=== PATIENT | female | born 1990 | race Caucasian/White ===

== ENCOUNTER 2018-08-21 21:02 | Inpatient (IN) | payer BC ==
[~2018-08-21] VITALS: Ht 165.1 cm; Wt 68.5 kg
[2018-08-21] MEDS ORDERED: D5%-LACTATED RINGERS 1,000 ML IV SCH (21:21)
[2018-08-21] MEDS ORDERED: OXYTOCIN 30U/ 0.9% NaCL 500ML 500 ML IV ONE (21:21)
[2018-08-21] MEDS ORDERED: CALCIUM CARBONATE 500 MG TAB.CHEW PO PRN (21:30)
[2018-08-21] MEDS ORDERED: FENTANYL PF 100 MCG/2ML IVPush PRN (21:30)
[2018-08-21] MEDS ORDERED: SODIUM CITRATE/CITRIC ACID 15 ML UDC PO PRN (21:30)
[2018-08-21] MEDS ORDERED: METOCLOPRAMIDE 5 MG/ML, 2ML IVPush PRN (21:30)
[2018-08-21] MEDS ORDERED: TERBUTALINE 1 MG/ML, 1ML IVPush PRN (21:30)
[2018-08-21] MEDS ORDERED: ONDANSETRON 2MG/ML, 2ML IVPush PRN (21:30)
[2018-08-21] MEDS ORDERED: FENTANYL PF 100 MCG/2ML IV PRN (21:30)
[2018-08-21] MEDS ORDERED: NEWBORN KIT ONE (21:40)
[2018-08-21 21:43] VITALS: BP 120/75
[2018-08-21 21:54] LABS: BASOPHILS # (AUTO) 0.02 x10^3/uL (0-0.1); BASOPHILS % (AUTO) 0 % (0-1); EOSINOPHILS # (AUTO) 0.11 x10^3/uL (0-0.4); EOSINOPHILS % (AUTO) 1 % (1-7); LYMPHOCYTES # (AUTO) 2.01 x10^3/uL (1-3.4); LYMPHOCYTES % (AUTO) 19 % (22-44); MD NO; MEAN CORPUSCULAR VOLUME 90.8 fL (80-100); MONOCYTES # (AUTO) 0.83 x10^3/uL (0.2-0.8); MONOCYTES % (AUTO) 8 % (2-9); NEUTROPHILS # (AUTO) 7.42 x10^3/uL (1.8-6.8); NEUTROPHILS % (AUTO) 71 % (42-75); PLATELET COUNT 272 x10^3/uL (130-400); RED BLOOD COUNT 3.89 x10^6/uL (3.82-5.3); RED CELL DISTRIBUTION WIDTH 14.4 % (9.6-15.2)
[2018-08-21] MEDS ORDERED: PLEASE ENTER ALLERGIES MC SCH (22:00)
[2018-08-21] MEDS: LACTATED RINGERS 1,000 ML IV SCH (22:50)
[2018-08-21] MEDS: VANCOMYCIN PMX 1GM/200ML 200 ML IVPB SCH (22:50)
[2018-08-21] MEDS ORDERED: VALACYCLOVIR 500MG TABLET PO STA (23:10)
[2018-08-22] MEDS ORDERED: FENTANYL PF 100 MCG/2ML ONE ×3 (01:48→18:01)
[2018-08-22] MEDS ORDERED: FENTANYL/BUPIV./NS/PF 250 ML EPIDCONT ONE (04:44)
[2018-08-22] MEDS ORDERED: BUPIVACAINE 0.25% ONE (04:55)
[2018-08-22] MEDS: LACTATED RINGERS 1,000 ML IV SCH ×5 (05:25→20:55)
[2018-08-22] MEDS ORDERED: EPHEDRINE 50 MG/ML, 1ML ONE (05:51)
[2018-08-22] MEDS: PLEASE ENTER HEIGHT AND WEIGHT MC SCH ×3 (07:19→22:00)
[2018-08-22] MEDS: PLEASE ENTER ALLERGIES MC SCH (07:20)
[2018-08-22 07:39] VITALS: BP 107/63
[2018-08-22] MEDS ORDERED: PREN1TAB60 PO (07:49)
[2018-08-22] MEDS ORDERED: ONDA4TAB7 PO (07:51)
[2018-08-22] MEDS ORDERED: VALACYCLOVIR 500MG TABLET PO SCH (09:00)
[2018-08-22] MEDS: VANCOMYCIN PMX 1GM/200ML 200 ML IVPB SCH (09:10)
[2018-08-22] MEDS ORDERED: VALACYCLOVIR 500MG TABLET ONE (09:19)
[2018-08-22] MEDS: VALACYCLOVIR 500MG TABLET PO SCH ×2 (09:34→21:00)
[2018-08-22] MEDS ORDERED: ACETAMINOPHEN 325 MG TABLET ONE (10:03)
[2018-08-22] MEDS ORDERED: ACETAMINOPHEN 325 MG TABLET PO PRN ×2 (10:30→19:30)
[2018-08-22] MEDS ORDERED: OXYTOCIN 30U/ 0.9% NaCL 500ML 500 ML ONE ×2 (13:04→13:50)
[2018-08-22] MEDS ORDERED: CEFAZOLIN 1,000 MG ONE (17:59)
[2018-08-22] MEDS ORDERED: OXYTOCIN 10 UNITS/ML, 1ML ONE (17:59)
[2018-08-22] MEDS ORDERED: ONDANSETRON 2MG/ML, 2ML ONE ×2 (17:59→19:46)
[2018-08-22] MEDS ORDERED: LIDOCAINE-MPF 2% ,5ML ONE ×3 (18:01)
[2018-08-22] MEDS ORDERED: SODIUM CHLORIDE 0.9% PF 10ML ONE ×2 (18:01)
[2018-08-22] MEDS ORDERED: HYDROmorphone 2 MG/ML, 1ML ONE ×2 (18:01→19:45)
[2018-08-22] MEDS: OXYTOCIN 30U/ 0.9% NaCL 500ML 500 ML IV SCH (19:29)
[2018-08-22] MEDS ORDERED: OXYcodone IR 5MG TABLET PO PRN (19:30)
[2018-08-22] MEDS ORDERED: METHYLERGONOVINE 0.2 MG/ML IM PRN (19:30)
[2018-08-22] MEDS ORDERED: MISOPROSTOL 200 MCG TABLET PR PRN (19:30)
[2018-08-22] MEDS ORDERED: ONDANSETRON 2MG/ML, 2ML IV PRN (19:30)
[2018-08-22] MEDS: HYDROmorphone 2 MG/ML, 1ML IVPush PRN ×4 (19:54→21:15)
[2018-08-22 20:00] VITALS: BP 100/64
[2018-08-22] MEDS ORDERED: OXYcodone IR 5MG TABLET ONE (20:46)
[2018-08-22] MEDS: IBUPROFEN 600 MG TABLET PO PRN (22:29)
[2018-08-22] MEDS: DOCUSATE 100 MG CAPSULE PO PRN (22:29)
[2018-08-23] MEDS: OXYcodone/APAP 5/325MG TABLET PO PRN ×6 (00:52→22:12)
[2018-08-23 01:02] VITALS: BP 108/62
[2018-08-23] MEDS: PLEASE ENTER HEIGHT AND WEIGHT MC SCH ×4 (01:14→22:00)
[2018-08-23 02:51] LABS: MEAN CORPUSCULAR HEMOGLOBIN 30.3 pg (27.0-34.8); MEAN CORPUSCULAR HGB CONC 33.7 g/dL (32.4-35.8); MEAN CORPUSCULAR VOLUME 89.8 fL (80-100); PLATELET COUNT 255 x10^3/uL (130-400); RED BLOOD COUNT 3.63 x10^6/uL (3.82-5.3); RED CELL DISTRIBUTION WIDTH 14.2 % (9.6-15.2)
[2018-08-23 03:06] LABS: BASOPHILS # (AUTO) 0.02 x10^3/uL (0-0.1); BASOPHILS % (AUTO) 0 % (0-1); EOSINOPHILS # (AUTO) 0.05 x10^3/uL (0-0.4); EOSINOPHILS % (AUTO) 0 % (1-7); LYMPHOCYTES # (AUTO) 1.89 x10^3/uL (1-3.4); LYMPHOCYTES % (AUTO) 10 % (22-44); MD SCAN; MONOCYTES # (AUTO) 1.18 x10^3/uL (0.2-0.8); MONOCYTES % (AUTO) 6 % (2-9); NEUTROPHILS # (AUTO) 16.03 x10^3/uL (1.8-6.8); NEUTROPHILS % (AUTO) 84 % (42-75)
[2018-08-23] MEDS: IBUPROFEN 600 MG TABLET PO PRN ×4 (04:17→23:07)
[2018-08-23 04:36] VITALS: BP 95/63
[2018-08-23] MEDS: OXYTOCIN 30U/ 0.9% NaCL 500ML 500 ML IV SCH ×2 (05:29→15:29)
[2018-08-23] MEDS: LACTATED RINGERS 1,000 ML IV SCH ×5 (06:01→19:29)
[2018-08-23] MEDS: VALACYCLOVIR 500MG TABLET PO SCH ×2 (08:27→22:12)
[2018-08-23] MEDS: DOCUSATE 100 MG CAPSULE PO PRN ×2 (08:27→22:13)
[2018-08-23 08:30] VITALS: BP 106/69
[2018-08-23] MEDS: PRENATAL VIT/IRON/FA 1 EACH TABLET PO SCH (09:00)
[2018-08-23 13:00] VITALS: BP 105/64
[2018-08-23 17:00] VITALS: BP 102/62
[2018-08-23 19:40] VITALS: BP 98/64
[2018-08-24] MEDS: LACTATED RINGERS 1,000 ML IV SCH ×6 (01:29→21:29)
[2018-08-24] MEDS: OXYTOCIN 30U/ 0.9% NaCL 500ML 500 ML IV SCH ×3 (01:29→21:29)
[2018-08-24] MEDS: OXYcodone/APAP 5/325MG TABLET PO PRN ×5 (02:12→19:21)
[2018-08-24] MEDS: PLEASE ENTER HEIGHT AND WEIGHT MC SCH (06:00)
[2018-08-24] MEDS: IBUPROFEN 600 MG TABLET PO PRN ×3 (06:39→19:21)
[2018-08-24 08:04] VITALS: BP 98/64
[2018-08-24] MEDS: DOCUSATE 100 MG CAPSULE PO PRN ×2 (08:13→19:21)
[2018-08-24] MEDS: PRENATAL VIT/IRON/FA 1 EACH TABLET PO SCH (09:00)
[2018-08-24] MEDS: VALACYCLOVIR 500MG TABLET PO SCH ×2 (09:31→21:36)
[2018-08-24 20:20] VITALS: BP 108/75
[2018-08-24] MEDS ORDERED: VALACYCLOVIR 500MG TABLET PO SCH (21:00)
[2018-08-25] MEDS: OXYcodone/APAP 5/325MG TABLET PO PRN ×6 (00:18→22:10)
[2018-08-25] MEDS: IBUPROFEN 600 MG TABLET PO PRN ×4 (02:11→22:51)
[2018-08-25] MEDS: LACTATED RINGERS 1,000 ML IV SCH ×5 (03:29→19:29)
[2018-08-25] MEDS: OXYTOCIN 30U/ 0.9% NaCL 500ML 500 ML IV SCH ×2 (07:29→17:29)
[2018-08-25 07:45] VITALS: BP 112/78
[2018-08-25] MEDS: PRENATAL VIT/IRON/FA 1 EACH TABLET PO SCH (08:09)
[2018-08-25] MEDS: DOCUSATE 100 MG CAPSULE PO PRN ×2 (08:10→22:10)
[2018-08-25] MEDS: VALACYCLOVIR 500MG TABLET PO SCH ×2 (11:21→22:10)
[2018-08-25 19:40] VITALS: BP 120/84
[2018-08-26] MEDS: OXYcodone/APAP 5/325MG TABLET PO PRN ×4 (03:06→15:59)
[2018-08-26] MEDS: OXYTOCIN 30U/ 0.9% NaCL 500ML 500 ML IV SCH (03:29)
[2018-08-26] MEDS: LACTATED RINGERS 1,000 ML IV SCH ×2 (03:29)
[2018-08-26] MEDS: IBUPROFEN 600 MG TABLET PO PRN ×3 (05:22→17:50)
[2018-08-26] MEDS: DOCUSATE 100 MG CAPSULE PO PRN (07:28)
[2018-08-26 07:30] VITALS: BP 116/79
[2018-08-26] MEDS: PRENATAL VIT/IRON/FA 1 EACH TABLET PO SCH (07:30)
[2018-08-26] MEDS: VALACYCLOVIR 500MG TABLET PO SCH (09:20)
[2018-08-26] MEDS ORDERED: IBUP-1222 PO (19:11)
[2018-08-26] MEDS ORDERED: OXYC-302 PO (19:11)
[2018-08-26 19:40] VITALS: BP 114/80
== END 2018-08-26 19:54 | disposition home or self-care (01) | DRG 785 ==
LOC: LDOP 21:02 → LDIP 21:06 → 2NW 08-22 21:35
PROVIDERS: ADMIT Obstetrics & Gynecology Maternal & Fetal Medicine; ATTEND Obstetrics & Gynecology Maternal & Fetal Medicine
PROC: 10E0XZZ Delivery of Products of Conception, External Approach (ICD-10-PCS; principal; 2018-08-22)
PROC: 0UB70ZZ Excision of Bilateral Fallopian Tubes, Open Approach (ICD-10-PCS; 2018-08-22)
PROC: 10D00Z1 Extraction of Products of Conception, Low, Open Approach (ICD-10-PCS; 2018-08-22)
PROC: 0KQM0ZZ Repair Perineum Muscle, Open Approach (ICD-10-PCS; 2018-08-22)
DX: O30.033 Twin pregnancy, monochorionic/diamniotic, third trimester (principal); O99.824 Streptococcus B carrier state complicating childbirth; O32.2XX2 Maternal care for transverse and oblique lie, fetus 2; O70.1 Second degree perineal laceration during delivery; Z3A.36 36 weeks gestation of pregnancy; Z37.2 Twins, both liveborn; Z30.2 Encounter for sterilization; Z88.0 Allergy status to penicillin
CPT/HCPCS: 36415; J3490; 82803; 85025; 86850; 86900; 88302; 88307; G0378; J0690; J1170; J2405; J3010; J3370; J2590; J7120